=== PATIENT | male | born 1970 | race Caucasian/White ===

== ENCOUNTER 2021-04-12 10:05 | Emergency (ER) | payer OTHER ==
[~2021-04-12] VITALS: Ht 170.2 cm; Wt 81.6 kg
--- NOTE | 2021-04-12 10:18 | NUR ---
BIB PD FOR MEDICAL CLEARANCE C/O BODYACHES AND NAUSEA SINCE YESTERDAY. 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 PATIENT A/OX4, BREATHING EVEN AND UNLABORED, NO SOB NOTED. NEEDS ATTENDED.
[2021-04-12] MEDS ORDERED: KETOROLAC TROMETHAMINE INJ 30 MG/ML VIAL ONE (10:25)
[2021-04-12] MEDS ORDERED: LORAZEPAM 1 MG TABLET ONE (10:25)
[2021-04-12] MEDS ORDERED: ONDANSETRON 4 MG TAB.RAPDIS ONE (10:25)
[2021-04-12] MEDS ORDERED: LORAZEPAM 1 MG TABLET PO ONE (10:30)
[2021-04-12] MEDS ORDERED: KETOROLAC TROMETHAMINE INJ 60 MG/2 ML VIAL IM ONE (10:30)
[2021-04-12] MEDS ORDERED: ONDANSETRON 4 MG TAB.RAPDIS SL ONE (10:30)
--- NOTE | 2021-04-12 10:34 | NUR ---
COVID SWAB SENT TO LAB.
--- NOTE | 2021-04-12 11:33 | NUR ---
MEDICALLY CLEARED. D/C TO [facility] IN STABLE CONDITION.
[2021-04-12 11:34] VITALS: BP 128/77
== END 2021-04-12 11:35 ==
LOC: ER 10:29
DX: F11.23 Opioid dependence with withdrawal (principal); Z20.822 Contact with and (suspected) exposure to COVID-19
CPT/HCPCS: 71045; 87426; 96372; 99284; C9803; J1885; Q0162